=== PATIENT | female | born 1965 | race Two or more races ===

== ENCOUNTER 2023-02-22 17:29 | Inpatient (IN) | payer OTHER ==
[~2023-02-22] VITALS: Ht 172.7 cm; Wt 0.5 kg
--- NOTE | 2023-02-22 17:54 | NUR ---
PATIENT IS RECIEVED SAYING THAT SHE HAS PELVIC PAIN AND NAUSEA SINCE THIS MORNING.
[2023-02-22] MEDS ORDERED: NORVASC2.5 M1 (17:55)
[2023-02-22] MEDS ORDERED: TENORMIN100 M1 (17:55)
--- NOTE | 2023-02-22 19:23 | NUR ---
SE EDUCA A PTE SOBRE [place] MEDICO ESTA REFIERE ENTENDER, SE KARL MUESTRAS DE LABORATORIO UTILIZANDO MEDIDAS ASEPTICAS. SE COLOCA H/L A PTE Y SE ADMINISTRAN MEDICAMENTOS LOS CUALES TOLERA. SE ASHLEY CONTRASTE A PTE Y SE NOTIFICA ESTUDIO DE CT PO PENDIENTE.
--- NOTE | 2023-02-22 23:54 | NUR ---
SE RECIBE PACIENTE AOX3. LA MISMA TIENE BRAVO CANALIZACION PATENTE Y BAJANDO CON UN R/L @ 125 ML/HR. PENDIENTE A LECTURA DE CT SCAN
--- NOTE | 2023-02-23 01:43 | NUR ---
12:40AM: SE PASA PACIENTE A AREA DE TRUAMA. SE COLOCA EN MONITOR CARDIACO Y OXIMETRIA DE PULSO. SE COLOCA CANULA A 2 L/MIN. SE COLOCA IVFS. 12:45AM V/S 97HR, 97%, BP 115/67. 12:48AM: DR. LIZARRAGA ADMINITRA 4 MG DE VERSED. 12:50PM: DR. LIZARRAGA ADMINITRA 2 MG DE VERSED. 12:53 AWN ADMINITRA 2 MG VERSED. 12:58PM: 2 MG DE VERSED. 1:00AM: BP 100/62 , HR 87 , 98% Y DR. LIZARRAGA REDUCE HOMBRO DE PACIENTE. DR. LIZARRAGA INDIDCA ADMINITRA 1.5ML DE ROMAZICON(0.15MG) SE ADMINITRAN A 1:05AM. 1:15AM: SE MIDEN S/V 115/71, 91HR, 95%. 1:30AM: SE COLOCA PACIENTE N SILLA DE MORAN Y SE MYRON EN PASILLO PARA JOSE PAULO X
--- NOTE | 2023-02-23 07:22 | NUR ---
SE RECIBE PTE EN EL AREA DE OBSERVACION EN SAM CON BARANDAS ELEVADA Y TIMBRE ACCESIBLE, PTE NO PRESENTA DOLOR AL MOMENTO, SE OBSERVA VENOPUNCION PATENTE Y MARIELLA DE EDEMA. PTE ALERTA Y ORIETNADO POR [address] ALBRIGHT PTE SE MANTIENE EN OBSERVACION Y BAJO TRATAMIENTO.
== END 2023-02-25 10:46 | disposition home or self-care (01) | DRG 343 ==
LOC: ER 17:29 → SURG 02-23 13:27 → SEC-K 02-23 13:27 → SURG 02-23 15:57
PROVIDERS: Specialist; ADMIT Specialist; ATTEND Specialist
PROC: BW21YZZ Computerized Tomography (CT Scan) of Abdomen and Pelvis using Other Contrast (ICD-10-PCS; 2023-02-23)
PROC: 0DTJ4ZZ Resection of Appendix, Percutaneous Endoscopic Approach (ICD-10-PCS; principal; 2023-02-23 17:00)
DX: K35.80 Unspecified acute appendicitis (principal); I10 Essential (primary) hypertension